=== PATIENT | female | born 1975 | race Caucasian/White ===

== ENCOUNTER 2023-08-06 11:09 | Emergency (ER) | payer BC ==
[~2023-08-06] VITALS: Ht 165.1 cm; Wt 74.1 kg
[2023-08-06 11:16] VITALS: TEMP 98.1
[2023-08-06] MEDS ORDERED: VOLTAREN GEL 1%1 TU TP (12:08)
[2023-08-06] MEDS ORDERED: NORCO 325 MG-51 TAB PO (12:10)
[2023-08-06 12:29] VITALS: BP 131/90; PULSE 68
== END 2023-08-06 12:30 | disposition home or self-care (01) ==
LOC: COL.ER 11:09
DX: M25.512 Pain in left shoulder (principal)
CPT/HCPCS: J1885; J2360

== ENCOUNTER 2023-12-16 10:05 | Emergency (ER) | payer BC ==
[~2023-12-16] VITALS: Ht 165.1 cm; Wt 72.7 kg
[~2023-12-16 10:05] MED LIST: NORCO 325 MG-51 TAB PO; VOLTAREN GEL 1%1 TU TP
[2023-12-16] MEDS ORDERED: Ibuprofen 600 MG TAB PO ONE (12:34)
[2023-12-16 13:30] VITALS: BP 125/85; PULSE 80; TEMP 97.9
== END 2023-12-16 13:30 | disposition home or self-care (01) ==
LOC: COL.ER 10:05
DX: S16.1XXA Strain of muscle, fascia and tendon at neck level, initial encounter (principal); M54.6 Pain in thoracic spine; W01.198A Fall on same level from slipping, tripping and stumbling with subsequent striking against other object, initial encounter; Y93.02 Activity, running